=== PATIENT | male | born 1965 | race Caucasian/White ===

== ENCOUNTER 2022-05-17 14:43 | Emergency (ER) | payer MEDICAID ==
[~2022-05-17] VITALS: Ht 165.1 cm; Wt 91.0 kg
[2022-05-17 15:17] VITALS: BP 151/97
== END 2022-05-18 00:38 | disposition home or self-care (01) ==
LOC: ER 14:43
DX: S02.2XXA Fracture of nasal bones, initial encounter for closed fracture (principal); R07.81 Pleurodynia; H57.12 Ocular pain, left eye; R03.0 Elevated blood-pressure reading, without diagnosis of hypertension; Y04.2XXA Assault by strike against or bumped into by another person, initial encounter; Y93.89 Activity, other specified; Y92.018 Other place in single-family (private) house as the place of occurrence of the external cause
CPT/HCPCS: 70486; 71045; 99284